=== PATIENT | male | born 1955 | race Caucasian/White ===

== ENCOUNTER 2021-09-21 21:49 | Emergency (ER) | payer MEDICARE, OTHER | END 2021-09-22 00:11 | disposition home or self-care (01) | LOC: JP.ED 21:49 | DX: S62.393A Other fracture of third metacarpal bone, left hand, initial encounter for closed fracture (principal); S60.222A Contusion of left hand, initial encounter; Z79.899 Other long term (current) drug therapy; W22.09XA Striking against other stationary object, initial encounter | CPT/HCPCS: 29125; 73130-26-LT; 73130-LT; 99281; 99283 ==